=== PATIENT | male | born 2000 | race Caucasian/White ===

== ENCOUNTER 2020-09-30 16:35 | Emergency (ER) | payer OTHER ==
[~2020-09-30] VITALS: Ht 167.6 cm; Wt 64.1 kg
[2020-09-30 16:36] VITALS: BP 158/79
[2020-09-30] MEDS ORDERED: MAGIC MOUTHWASH SUSPENSION BTL SS STA (17:27)
[2020-09-30] MEDS ORDERED: ALBUTEROL 90 MCG/ACT 8GM HFA INHALER INH ONE (17:30)
[2020-09-30] MEDS ORDERED: NAPROXEN 250 MG TAB PO ONE (17:30)
[2020-09-30] MEDS ORDERED: BENZONATATE 100 MG CAP PO ONE (17:30)
[2020-09-30] MEDS ORDERED: ACETAMINOPHEN 500 MG TAB PO ONE (17:45)
--- NOTE | 2020-09-30 18:16 | REP ---
INDICATION: cough, SOB, night sweats, fever. COMPARISON: None. TECHNIQUE: AP portable chest: FINDINGS: Lung mullins are not well inflated. There is some minor basilar subsegmental atelectasis without dense consolidation or air bronchograms. I see no pleural effusion or lateral pleural thickening. Heart size not enlarged for this degree of inflation and portable technique. The aorta, airway and mediastinal contours were normal and visible bones are unremarkable. No free air under the diaphragm. IMPRESSION: Mild underinflation with some crowding of markings in the bases suggesting some subsegmental atelectasis no dense consolidation or pleural effusion. Heart size normal for AP portable technique and this degree of inflation. <Electronically signed by Kareem Hewitt > 09/30/20 [id number]
[2020-09-30] MEDS ORDERED: PROAAER10 INH (18:53)
[2020-09-30] MEDS ORDERED: MAGICMW SSP (18:53)
[2020-09-30] MEDS ORDERED: TESS100C PO (18:53)
[2020-09-30] MEDS ORDERED: MUCI120T PO (18:53)
[2020-09-30] MEDS ORDERED: NAPR-837 PO (18:53)
== END 2020-09-30 19:10 | disposition home or self-care (01) ==
LOC: M ED 16:35
DX: R05 Cough (principal); J02.9 Acute pharyngitis, unspecified; R50.9 Fever, unspecified; Z20.828 Contact with and (suspected) exposure to other viral communicable diseases; R91.8 Other nonspecific abnormal finding of lung field; Z79.899 Other long term (current) drug therapy
CPT/HCPCS: 71045; 87880; 94640; 99284; U0003

== ENCOUNTER 2021-05-20 12:02 | Emergency (ER) | payer OTHER ==
[~2021-05-20] VITALS: Ht 170.2 cm; Wt 77.0 kg
[2021-05-20 12:02] VITALS: BP 135/76
[~2021-05-20 12:02] MED LIST: MAGICMW SSP; MUCI120T PO; NAPR-837 PO; PROAAER10 INH; TESS100C PO
[2021-05-20] MEDS ORDERED: ACETAMINOPHEN 500 MG TAB PO ONE (13:45)
--- NOTE | 2021-05-20 14:01 | REP ---
INDICATION: L elbow pain, swelling. COMPARISON: None TECHNIQUE: Four views FINDINGS: There is no acute fracture, dislocation, subluxation, or joint effusion. IMPRESSION: Within normal limits <Electronically signed by Balta Chandler > 05/20/21 [id number]
[2021-05-20 14:29] LABS: BASO % 0.4 % (0.0-1.0); EOS # 0.1 10^3/uL (0.0-0.5); EOS % 0.6 % (0.0-3.0); HEMATOCRIT 48.4 % (42.0-52.0); LYMPH # 2.2 10^3/uL (1.5-5.0); LYMPH % 27.7 % (24.0-44.0); MEAN CORPUSCULAR HEMOGLOBIN 30.1 pg (27.0-33.0); MEAN CORPUSCULAR HGB CONC 33.1 g/dl (32.0-36.5); MONO % 12.7 % (2.0-8.0); NEUTROPHILS # 4.7 10^3/uL (1.5-8.5); NEUTROPHILS % 58.2 % (36.0-66.0); PLATELET COUNT, AUTOMATED 265 10^3/uL (150-450); RED BLOOD COUNT 5.32 10^6/uL (4.30-6.10); WHITE BLOOD COUNT 8.1 10^3/uL (4.0-10.0)
[2021-05-20 14:42] LABS: BLOOD UREA NITROGEN 9 MG/DL (7-18); C REACTIVE PROTEIN QUANTITATIV 0.81 MG/DL (0.00-0.30); CALCIUM LEVEL 9.8 MG/DL (8.5-10.1); CARBON DIOXIDE LEVEL 32 MEQ/L (21-32); CHLORIDE LEVEL 103 MEQ/L (98-107); CREATININE FOR GFR 1.04 MG/DL (0.70-1.30); GLOMERULAR FILTRATION RATE > 60.0 (>60); GLUCOSE, FASTING 70 MG/DL (70-100); POTASSIUM SERUM 4.3 MEQ/L (3.5-5.1); SODIUM LEVEL 138 MEQ/L (136-145)
[2021-05-20 14:54] LABS: ERYTHROCYTE SEDIMENTATION RATE 3 mm/hr (0-15)
--- NOTE | 2021-05-20 15:10 | REP ---
INDICATION: r/o abscess L elbow. COMPARISON: None. TECHNIQUE: Real-time sonographic evaluation of left elbow soft tissues performed posteriorly in the region of the wound. FINDINGS: There is no sonographic evidence of underlying abscess or fluid collection in the soft tissues near the soft tissue wound of the left elbow. IMPRESSION: No sonographic evidence of abscess or fluid collection at this time in the region of the left elbow soft tissues. <Electronically signed by Aquiles Vasquez > 05/20/21 [id number]
[2021-05-20] MEDS ORDERED: BACT800T5 PO (15:29)
[2021-05-20] MEDS ORDERED: NEOSPORIN OINT 0.9 GM PKT TOP ONE (16:05)
== END 2021-05-20 16:14 | disposition home or self-care (01) ==
LOC: M ED 12:02
DX: L03.114 Cellulitis of left upper limb (principal); M70.22 Olecranon bursitis, left elbow; F17.200 Nicotine dependence, unspecified, uncomplicated; Y92.9 Unspecified place or not applicable; Y93.9 Activity, unspecified; Y99.9 Unspecified external cause status

== ENCOUNTER → 2023-04-13 | Outpatient (CLI) | payer OTHER ==
[~2023-04-13] MED LIST changes: +BACT800T5 PO
== END ==
LOC: M PLAIMG 07:30
PROVIDERS: ATTEND Physician Assistant
DX: M54.50 Low back pain, unspecified (principal)

== ENCOUNTER 2024-02-05 02:46 | Emergency (ER) | payer OTHER ==
[~2024-02-05] VITALS: Ht 170.2 cm; Wt 59.1 kg
[2024-02-05] MEDS: PERCOCET 5MG/325MG TAB PO ONE (06:16)
[2024-02-05] MEDS: ONDANSETRON 4MG ORAL DISINTEGRATING TAB PO ONE (06:16)
[2024-02-05] MEDS ORDERED: HYDR-4571 PO (06:54)
[2024-02-05] MEDS ORDERED: IBUP-1022 PO (06:54)
[2024-02-05] MEDS ORDERED: ONDA4TAB6 PO (07:03)
[2024-02-05 07:32] VITALS: BP 129/74; TEMP 98.2; O2SAT 98
== END 2024-02-05 07:36 | disposition home or self-care (01) ==
LOC: M ED 02:46
DX: S62.326A Displaced fracture of shaft of fifth metacarpal bone, right hand, initial encounter for closed fracture (principal); W23.1XXA Caught, crushed, jammed, or pinched between stationary objects, initial encounter; F10.10 Alcohol abuse, uncomplicated; Y92.9 Unspecified place or not applicable; Y93.9 Activity, unspecified; Y99.9 Unspecified external cause status; Z79.83 Long term (current) use of bisphosphonates; Z79.891 Long term (current) use of opiate analgesic; Z79.899 Other long term (current) drug therapy

== ENCOUNTER 2024-02-15 07:33 | Emergency (ER) | payer OTHER ==
[~2024-02-15] VITALS: Ht 170.2 cm; Wt 58.6 kg
[~2024-02-15 07:33] MED LIST changes: +HYDR-4571 PO; +IBUP-1022 PO; +ONDA4TAB6 PO
[2024-02-15 11:27] VITALS: BP 121/62; TEMP 98.2; O2SAT 96
== END 2024-02-15 11:28 | disposition home or self-care (01) ==
LOC: M ED 07:33
DX: S62.326K Displaced fracture of shaft of fifth metacarpal bone, right hand, subsequent encounter for fracture with nonunion (principal); Z46.89 Encounter for fitting and adjustment of other specified devices; F17.200 Nicotine dependence, unspecified, uncomplicated; F10.10 Alcohol abuse, uncomplicated; Z79.83 Long term (current) use of bisphosphonates; Z79.1 Long term (current) use of non-steroidal anti-inflammatories (NSAID); Z79.899 Other long term (current) drug therapy

== ENCOUNTER 2024-02-23 07:16 | Day surgery (SDC) | payer OTHER ==
[~2024-02-23] VITALS: Ht 170.2 cm; Wt 58.8 kg
[2024-02-23] MEDS ORDERED: LR 1,000 ML IV SCH (08:30)
[2024-02-23] MEDS ORDERED: MIDAZOLAM INJ 2MG/2ML VIAL As Ordered ONE (09:21)
[2024-02-23] MEDS ORDERED: fentaNYL 100 MCG/2 ML INJECTION As Ordered ONE (09:21)
[2024-02-23] MEDS ORDERED: KETOROLAC 60MG 2ML VIAL As Ordered ONE (09:22)
[2024-02-23] MEDS ORDERED: propofoL 200 MG/20 ML VIAL As Ordered ONE (09:22)
[2024-02-23] MEDS ORDERED: LIDOCAINE 2% 100MG/5ML SDV (FOR ANES.) As Ordered ONE (09:22)
[2024-02-23] MEDS ORDERED: ONDANSETRON 4MG 2ML VIAL As Ordered ONE (09:22)
[2024-02-23] MEDS ORDERED: TRANEXAMIC ACID 100 MG/ML 10ML VIAL As Ordered ONE (09:56)
[2024-02-23] MEDS: ceFAZolin SOD 2 GM in IV 1 EA IV ONE (09:57)
[2024-02-23] MEDS: TRANEXAMIC ACID 100 MG/ML 10ML VIAL IV ONE (10:06)
[2024-02-23] MEDS ORDERED: fentaNYL 100 MCG/2 ML INJECTION IV PRN (12:00)
[2024-02-23] MEDS ORDERED: HYDROmorphone HCL 2MG/ML 1ML VIAL As Ordered ONE (12:16)
[2024-02-23] MEDS: ONDANSETRON 4MG 2ML VIAL IV PRN (12:31)
[2024-02-23] MEDS: HYDROMORPHONE HCL 0.5 MG/ 0.5 ML SYRINGE IV PRN (12:32)
[2024-02-23] MEDS: oxyCODONE 5MG TAB PO PRN (12:40)
[2024-02-23 13:34] VITALS: BP 128/69; TEMP 98.1; O2SAT 99
== END 2024-02-23 13:57 | disposition home or self-care (01) ==
LOC: M SDC 07:16
PROVIDERS: ATTEND Orthopaedic Surgery
DX: S62.326A Displaced fracture of shaft of fifth metacarpal bone, right hand, initial encounter for closed fracture (principal); W23.0XXA Caught, crushed, jammed, or pinched between moving objects, initial encounter; Y93.9 Activity, unspecified; Y92.9 Unspecified place or not applicable; F17.290 Nicotine dependence, other tobacco product, uncomplicated
CPT/HCPCS: 26615; 76000; C1713; C1762; C9290; J0665; J0690; J1100; J1170; J1885; J2250; J2405; J3010